=== PATIENT | female | born 1965 | race Caucasian/White ===

== ENCOUNTER 2020-11-11 14:12 | Emergency (ER) | payer BC, OTHER ==
--- OUTSIDE RECORDS SUMMARY | 2020-11-11 14:19 | XMS REPORT | Continuity of Care Document ---
:1965 [facility] t Address [address] [place] [address] Care Team Providers Name Role Phone Pcp MD Primary Care Physician Unavailable Problems This patient has no known problems. Allergies, Adverse Reactions, Alerts This patient has no known allergies or adverse reactions. Social History Social Habit Start Date Stop Date Quantity Comments Source Sex Assigned At [facility] Tobacco use and 2018-03-28 2018-03-28 Never used [facility] - exposure 00:00:00 00:00:00 [facility] Alcohol intake 2018-03-28 2018-03-28 Current [facility] es - 00:00:00 00:00:00 non-drinker of [facility] nter alcohol (finding) Smoking Status Start Date Stop Date Source Never smoker [facility] Medications Ordered Filled Start Stop Current Ordering Indication Dosage Frequency Signature Comments Components Source Medication Medication Date Date Medication? Clinician (SIG) Name Name selenium 50 Yes 50ug QD Take [address] [facility] mcg Tab 5-30 mcg [facility] - 10:16: mouth Medical 29 daily. [place] SUMAtriptan Yes 50mg Take [address] [facility] (IMITREX) 5-30 by mouth [facility] - 50 MG 10:16: once as Medical tablet 29 needed for Center Headaches. levothyroxi Yes 50ug Take [address] [facility] ne 5-30 mcg by [facility] - (SYNTHROID, 10:16: mouth Medic al LEVOTHROID) 28 Every Center 50 MCG morning on tablet an empty stomach. raloxifene Yes 60mg QD Take [address] (EVISTA) 60 5-30 by mouth Luke [facility] - mg tablet 10:16: daily. Medica l 28 [place] magnesium 2018-0 Yes 250mg QD Take [address] [facility] 30 mg 5-30 mg by [facility] - tablet 10:16: mouth Medical 28 daily. [place] calcium 2018-0 Yes 1{tbl} QD Take [address] [facility] carbonate 5-30 tablet by [facility] - (TUMS) 500 10:16: mouth Medica l mg chewable 28 daily. [facility] tablet calcium 2018-0 Yes 1{tbl} Take [address] [facility] carbonate-v 5-30 tablet by [facility] - itamin D3 10:16: mouth Medical (CALCIUM- 28 once. [facility] TAMIN D) 500 mg(1,250mg) -200 unit per tablet Procedures This patient has no known procedures. Plan of Care Planned Activity Planned Date Details Comments Source Future Scheduled 2020-06-[address] [facility] - Test 00:00:00 (#1) [code = [facility] INFLUENZA VACCINE (#1)] Future Scheduled [address] [facility] - Test 00:00:00 (procedure) [code = [facility] 32474807] Future Scheduled [address] [facility] - Test 00:00:00 malignant neoplasm Medical C enter of cervix (procedure) [code = 716921437] Future Scheduled [address] [facility] - Test 00:00:00 malignant neoplasm Medical C enter of breast (procedure) [code = 781073562] Future Scheduled [address] [facility] - Test 00:00:00 malignant neoplasm Medical C enter of colon (procedure) [code = 655309868] Results Test Description Test Time Test Comments Results Result [facility] e Comments MM, MAMMO, OUTSIDE 2018-03-29 MRN#: [id number] 08:54:00 [id number] - MM, MAMMO, OUTSIDE FILMSBILATERAL DIGITAL DIAGNOSTIC MAMMOGRAM OUTSIDE STUDY: 03/28/2018Comparison is made to exams dated: 06/12/2017 mammogram and 05/16/2017 mammogram. There are scattered fibroglandular elements in the right breast that could obscure a lesion on mammography. The patient has been referred for potential stereotactic biopsy of a group of calcifications in the central medial right breast. Upon review, there are developing round, coarse and dystrophic calcifications scattered in the right anterior central medial breast, consistent with fat necrosis from the patient's recent reduction mammoplasty.IMPRESSIO N: BENIGNThe findings, options for management and recommendations have been discussed with the patient and her sister. A follow-up mammogram in 6 months is recommended to demonstrate stability. Verna Saldana M.D. pth/:03/29/2018 08:54:06 Awning Hanger Supervisor: Liana DELUCA(Mary)(M), [facility] Mammogram BI-RADS: 2 Benign [id number]
--- OUTSIDE RECORDS SUMMARY | 2020-11-11 14:19 | XMS REPORT | Clinical Summary ---
:1965 Author Organization [facility] Address [address] [place] [address] Care Team Providers Name Role Phone Pcp, Primary Care Provider Unavailable Allergies No Known Allergies Medications Medication Sig Dispensed Refills Start Date End Date Status levothyroxine Take 50 mcg by 0 A ctive (SYNTHROID, LEVOTHROID) mouth Every 50 MCG tablet morning on an empty stomach. raloxifene (EVISTA) 60 Take 60 mg by 0 Active mg tablet mouth daily. magnesium 30 mg tablet Take 250 mg by 0 Active mouth daily. calcium carbonate Take 1 tablet by 0 Active (TUMS) 500 mg chewable mouth daily. tablet calcium Take 1 tablet by 0 Act abe carbonate-vitamin D3 mouth once. (CALCIUM-VITAMIN D) 500 mg(1,250mg) -200 unit per tablet selenium 50 mcg Tab Take 50 mcg by 0 Active mouth daily. SUMAtriptan (IMITREX) Take 50 mg by 0 Active 50 MG tablet mouth once as needed for Headaches. Active Problems Not on file Social History Tobacco Use Types Packs/Day Years Used Date Never Smoker Smokeless Tobacco: Never Used Alcohol Use Drinks/Week oz/Week Comments No Sex Assigned at Date Recorded Not on file Last Filed Vital Signs Not on file Plan of Treatment Health Maintenance Due Date Last Done Comments BREAST CANCER SCREENING 1965 COLON CANCER SCREENING COLONOSCOPY 1965 CERVICAL CANCER SCREENING PAP ONLY (Age 21-65) 1985 LIPID PANEL 2009 INFLUENZA VACCINE (#1) 2020 Results Not on fileafter 11/11/2019 Insurance Payer Benefit Plan / Subscriber ID Effective Dates Phone Addre ss Type Group [employer] - [employer] C[employer] AET[employer] PPO OPEN [facility] [id number] 2017-Present PPO NAP
[2020-11-11 18:14] LABS: Absolute Lymphocytes (CBC) 1.7 K/uL (0.7-4.9); Basophils % 1.1 % (0-1.3); Hematocrit 41.2 % (36.0-45.0); Lymphocytes % 30.6 % (15.3-44.8); RBC Red Blood Cell Count 4.99 M/uL (3.86-4.86)
--- NOTE | 2020-11-11 18:15 | RAD REPORT ---
EXAM DESCRIPTION: CT - Head Brain Wo Cont - 11/11/2020 6:03 pm CLINICAL HISTORY: headache, elevated BP COMPARISON: Head Brain Wo Cont dated 07/27/2016 TECHNIQUE: Axial 5 mm thick images of the head were obtained without IV contrast. All CT scans are performed using dose optimization technique as appropriate and may include automated exposure control or mA/KV adjustment according to patient size. FINDINGS: No intracranial hemorrhage, mass, edema or shift of mid-line structures. No acute infarcti on changes seen. No abnormal extra-axial fluid collections. Ventricles are normal. Physiologic calcif ications are present. Mastoid air cells and visualized portions of the paranasal sinuses are clear. No acute bony findings. IMPRESSION: Negative non-contrast CT head examination for acute or significant finding. No significant change from the 2016 study.
[2020-11-11 18:22] LABS: BUN Blood Urea Nitrogen 9 mg/dL (7-18); Bicarbonate 31 mmol/L (21-32); Glucose Level 99 mg/dL (74-106); Potassium 3.6 mmol/L (3.5-5.1); Sodium Level 142 mmol/L (136-145); Troponin (Emerg Dept Use Only) < 0.02 ng/mL (0.0-0.045)
[2020-11-11 18:51] LABS: SARS-COV-2 RT PCR NEGATIVE (NEGATIVE)
--- NOTE | 2020-11-11 19:00 | ER ---
Nurse's Notes [facility] Name: aSndra Sanchez Age: 55 yrs Sex: Female : 1965 Arrival Date: 11/11/2020 Time: 14:15 Bed 15 Private MD: Diagnosis: Hypertension Presentation: 11/11 14:45 Chief complaint: Patient states: Sharp, shooting eye pain x 4 since last week, went to [facility] Dr. Kaminski and eyes are healthy, he said its BP related. Went to lunch and started feeling lightheaded, not dizzy, sort of felt like I was going to pass out, symptoms have eased up but still a little light-headed. Coronavirus screen: Client denies travel out of the [place] in the last 14 days. At this time, the client does not indicate any symptoms associated with coronavirus-19. Ebola Screen: No symptoms or risks identified at this time. Mechanism of Injury: No Mechanism of Injury. The patient denies any loss of vision. Initial Sepsis Screen: Does the patient meet any 2 criteria? No. Patient's initial sepsis screen is negative. Does the patient have a suspected source of infection? No. Patient's initial sepsis screen is negative. Risk Assessment: Do you want to hurt yourself or someone else? Patient reports no desire to harm self or others. Onset of symptoms was November 11, 2020 at 14:00. Care prior to arrival: None. 14:45 Method Of Arrival: Ambulatory [facility] 14:45 Acuity: SANDY 3 7 Triage Assessment: 15:03 General: Appears in no apparent distress. uncomfortable, Behavior is cooperative, jl7 appropriate for age, anxious. Pain: Denies pain. EENT: Sclera/Cornea are reddened in right eye. Historical: - Allergies: 15:03 Codeine; jl7 - Home Meds: 15:03 Imitrex Sub-Q PRN for Migraine [Active]; levothyroxine oral [Active]; jl7 - PMHx: 15:03 Migraines; Hypothyroidism; jl7 - PSHx: 15:03 Hysterectomy; TMJ; jl7 - Immunization history:: Adult Immunizations not up to date. - Social history:: Smoking status: Patient denies any tobacco usage or history of. - Family history:: not pertinent. - Hospitalizations: : No recent hospitalization is reported. Screenin:30 Fall Risk None identified. zb 19:59 Abuse screen: Denies threats or abuse. Denies injuries from another. Nutritional zb screening: No deficits noted. Tuberculosis screening: No symptoms or risk factors identified. Assessment: 16:00 General: Appears in no apparent distress. comfortable, Behavior is calm, cooperative, zb appropriate for age. Pain: Complains of pain in right eye. Neuro: Level of Consciousness is awake, alert, confused, Oriented to person, place, time, situation. Cardiovascular: Reports Denies chest pain, nausea, syncope, Heart tones S1 S2 present Capillary refill < 3 seconds in bilateral fingers Patient's skin is warm and dry. Respiratory: Airway is patent Respiratory effort is even, unlabored, Respiratory pattern is regular, symmetrical. GI: Abdomen is round non-distended. : No signs and/or symptoms were reported regarding the genitourinary system. EENT: Eyes pain reports pain. no tearing or swelling noted. . Derm: No signs and/or symptoms reported regarding the dermatologic system. Musculoskeletal: No signs and/or symptoms reported regarding the musculoskeletal system. 17:00 Reassessment: Patient appears in no apparent distress at this time. Patient and/or zb family updated on plan of care and expected duration. Pain level reassessed. Patient is alert, oriented x 3, equal unlabored respirations, skin warm/dry/pink. 18:00 Reassessment: Patient appears in no apparent distress at this time. Patient and/or zb family updated on plan of care and expected duration. Pain level reassessed. Patient is alert, oriented x 3, equal unlabored respirations, skin warm/dry/pink. 19:00 Reassessment: Patient appears in no apparent distress at this time. Patient and/or zb family updated on plan of care and expected duration. Pain level reassessed. Patient is alert, oriented x 3, equal unlabored respirations, skin warm/dry/pink. Vital Signs: 14:45 BP 156 / 109; Pulse 77; Resp 17; Pulse Ox 100% ; Weight 65.77 kg; Height 5 ft. 7 in. jl7 (170.18 cm); Pain 0/10; 19:31 BP 157 / 91; Pulse 69; Resp 16; Pulse Ox 100% on R/A; zb 14:45 Body Mass Index 22.71 (65.77 kg, 170.18 cm) jl7 ED Course: 14:15 Patient arrived in ED. ag5 15:00 EKG completed in triage. Results shown to MD. jl7 15:02 Triage completed. jl7 15:03 Arm band placed on right wrist. jl7 17:00 Inserted saline lock: 20 gauge in right antecubital area, using aseptic technique. zb 17:10 Flaco Hernandez MD is Attending Physician. rn 18:03 CT Head Brain wo Cont In Process Unspecified. EDMS 18:40 Giuliana Gunderson, RAMAKRISHNA is Primary Nurse. zb 20:00 Patient has correct armband on for positive identification. Bed in low position. zb quality assurance monitor on. Pulse ox on. NIBP on. Door closed. Noise minimized. Warm blanket given. 20:00 IV discontinued, intact, bleeding controlled, No redness/swelling at site. Pressure zb dressing applied. 20:00 No provider procedures requiring assistance completed. zb Administered Medications: No medications were administered Outcome: 19:00 Discharge ordered by . rn 20:00 Discharged to home ambulatory. zb 20:00 Condition: stable 20:00 Discharge instructions given to patient, Instructed on discharge instructions, follow up and referral plans. Demonstrated understanding of instructions, follow-up care. 20:01 Patient left the ED. zb Signatures: Dispatcher [employer] EDTN Flaco Hernandez MD MD rn Leal, Jahala, RN RN jl7 Hebert Moss 5 Giuliana Gunderson RN RN zvidal Corrections: (The following items were deleted from the chart) 19:59 16:00 Cardiovascular: Reports Heart tones S1 S2 present Capillary refill < 3 seconds in zb bilateral fingers Patient's skin is warm and dry. zb
--- NOTE | 2020-11-11 19:00 | EDPHYS ---
Physician Documentation [facility] Name: Sandra Sanchez Age: 55 yrs Sex: Female : 1965 Arrival Date: 11/11/2020 Time: 14:15 Bed 15 Private MD: ED Physician Flaco Hernandez HPI: 11/11 17:35 This 55 yrs old Female presents to ER via Ambulatory with complaints of Eye rn Pain, Chest Tightness, Diarrhea. 17:35 Reports told to get evaluation by quality assurance test program manager, seen for subconjunctival hemorrhage rn and told eye looks fine, doesn't seem to be cause of problem. Told BP was elevated and may be the culprit. Reports elevated diastolic BP > 100 at home, happens intermittently, today noticed high BP, lightheaded, "woozy", and reports diarrhea, so came in for eval. Did experience brief episode of chest tightness, but quickly resolved. Currently asymptomatic. . Onset: The symptoms/episode began/occurred today. Severity of symptoms: At their worst the symptoms were moderate in the emergency department the symptoms have resolved. The patient has experienced similar episodes in the past. The patient has not recently seen a physician. Historical: - Allergies: 15:03 Codeine; jl7 - Home Meds: 15:03 Imitrex Sub-Q PRN for Migraine [Active]; levothyroxine oral [Active]; jl7 - PMHx: 15:03 Migraines; Hypothyroidism; jl7 - PSHx: 15:03 Hysterectomy; TMJ; jl7 - Immunization history:: Adult Immunizations not up to date. - Social history:: Smoking status: Patient denies any tobacco usage or history of. - Family history:: not pertinent. - Hospitalizations: : No recent hospitalization is reported. ROS: 17:35 Constitutional: Negative for fever, chills, and weight loss, Eyes: Negative for injury, distance learning administrator, ENT: Negative for injury, pain, and discharge, Neck: Negative for injury, pain, and swelling, Cardiovascular: Negative for palpitations, and edema, Respiratory: Negative for shortness of breath, cough, wheezing, and pleuritic chest pain, Abdomen/GI: Negative for abdominal pain, nausea, vomiting, and constipation, Back: Negative for injury and pain, : Negative for injury, bleeding, discharge, and swelling, MS/Extremity: Negative for injury and deformity, Skin: Negative for injury, rash, and discoloration, Neuro: Negative for weakness, numbness, tingling, and seizure. Exam: 17:35 Constitutional: This is a well developed, well nourished patient who is awake, alert, rn and in no acute distress. Head/Face: Normocephalic, atraumatic. Eyes: Pupils equal round and reactive to light, extra-ocular motions intact. + right eye with subconjunctival hemorrhage lateral/inferior Cardiovascular: Regular rate and rhythm. No pulse deficits. Respiratory: Speaking full sentences. No increased work of breathing, no retractions or nasal flaring. Abdomen/GI: soft, non-tender Skin: Warm, dry MS/ Extremity: Pulses equal, no cyanosis. Neurovascular intact. Full, normal range of motion. Equal circumference. Neuro: Awake and alert, GCS 15, oriented to person, place, time, and situation. Cranial nerves II-XII grossly intact. Motor strength 5/5 in all extremities. Sensory grossly intact. Cerebellar exam normal. Vital Signs: 14:45 BP 156 / 109; Pulse 77; Resp 17; Pulse Ox 100% ; Weight 65.77 kg; Height 5 ft. 7 in. jl7 (170.18 cm); Pain 0/10; 19:31 BP 157 / 91; Pulse 69; Resp 16; Pulse Ox 100% on R/A; zb 14:45 Body Mass Index 22.71 (65.77 kg, 170.18 cm) jl7 MDM: 17:10 Patient medically screened. rn 18:43 Differential Diagnosis malignant HTN, COVID, stress reaction. Data reviewed: vital rn signs, nurses notes, lab test result(s), EKG, radiologic studies, CT scan, and as a result, I will discharge patient. Counseling: I had a detailed discussion with the patient and/or guardian regarding: the historical points, exam findings, and any diagnostic results supporting the discharge/admit diagnosis, lab results, radiology results, the need for outpatient follow up, to return to the emergency department if symptoms worsen or persist or if there are any questions or concerns that arise at home. Response to treatment: the patient's symptoms have mildly improved after treatment, and as a result, I will discharge patient. Special discussion: I discussed with the patient/guardian in detail that at this point there is no indication for admission to the hospital. It is understood, however, that if the symptoms persist or worsen the patient needs to return immediately for re-evaluation. Based on the history and exam findings, there is no indication for further emergent testing or inpatient evaluation. I discussed with the patient/guardian the need to see the logistics coordinator for further evaluation of the symptoms. I discussed with the patient/guardian the need to see the primary care provider for further evaluation of the symptoms. ED course: Neg trop, neg CT head, normal neuro exam, asymptomatic since arrival, ECG without ischemia, will dc home with instructions to take BP diary and f/u with pcp/cardiology for BP management. Return precautions given. Already evaluated by ophtho and told eye ok. BP improved to 169/90 without meds here. . 11/11 17:32 Order name: CBC with Diff rn 11/11 17:32 Order name: Basic Metabolic Panel; Complete Time: 18:25 rn 11/11 17:32 Order name: Troponin (emerg Dept Use Only); Complete Time: 18:25 rn 11/11 17:33 Order name: CBC with Automated Diff; Complete Time: 18:19 EDMS 11/11 17:32 Order name: CT Head Brain wo Cont; Complete Time: 18:19 rn 11/11 17:32 Order name: IV Start; Complete Time: 17:58 rn 11/11 17:32 Order name: EKG; Complete Time: 17:33 rn 11/11 17:32 Order name: EKG - Nurse/Tech; Complete Time: 18:40 rn 11/11 18:52 Order name: COVID-19/FLU A+B; Complete Time: 18:59 EDMS Administered Medications: No medications were administered Disposition: 11/11/20 19:00 Discharged to Home. Impression: Hypertension. - Condition is Stable. - Discharge Instructions: Hypertension, Managing Your Hypertension. - Medication Reconciliation Form, Thank You Letter, Antibiotic Education, Prescription Opioid Use form. - Follow up: Private Physician; When: As needed; Reason: Recheck today's complaints, Re-evaluation by your physician. - Problem is new. - Symptoms have improved. Signatures: Dispatcher [employer] EDMS Flaco Hernandez MD MD rn Leal, Jahala, RN RN jl7 Giuliana Gunderson RN RN zb Corrections: (The following items were deleted from the chart) 18:06 17:33 CORONAVIRUS+MR.LAB.BRZ ordered. EDMS EDMS 18:41 17:33 Influenza Screen (A \\T\\ B)+BA.LAB.BRZ ordered. EDMS EDMS 20:01 19:00 11/11/2020 19:00 Discharged to Home. Impression: Hypertension. Condition is zb Stable. Discharge Instructions: Hypertension, Managing Your Hypertension. Forms are Medication Reconciliation Form, Thank You Letter, Antibiotic Education, Prescription Opioid Use. Follow up: Private Physician; When: As needed; Reason: Recheck today's complaints, Re-evaluation by your physician. Problem is new. Symptoms have improved. rn
[2020-11-11 20:05] VITALS: O2SAT 100
[2020-11-11 20:07] VITALS: BP 157/91
--- NOTE | 2020-11-12 11:22 | EKG ---
Test Date: 2020-11-11 Test Time: 18:39:49 Water Use Inspector: JAIME MEASUREMENT RESULTS: Intervals: Rate: 62 GA: 168 QRSD: 84 QT: 414 QTc: 420 [place]: P: 67 GA: 168 QRS: 99 T: 82 INTERPRETIVE STATEMENTS: Normal sinus rhythm Rightward axis Nonspecific ST abnormality Abnormal ECG Compared to ECG 11/11/2020 14:57:46 ST (T wave) deviation now present Electronically Signed On 11-12-20 11:20:49 FOUNDATION DIRECTOR by Robin Salas
--- NOTE | 2020-11-12 11:23 | EKG ---
Test Date: 2020-11-11 Test Time: 14:57:46 Party Plan Sales Agent: JERAMY MEASUREMENT RESULTS: Intervals: Rate: 68 [place]: 168 QRSD: 86 QT: 408 QTc: 433 [place]: P: 73 [place]: 168 QRS: 94 T: 55 INTERPRETIVE STATEMENTS: Normal sinus rhythm Rightward axis Borderline ECG Compared to ECG 07/27/2016 11:46:53 Right-axis deviation now present Sinus bradycardia no longer present ST (T wave) deviation no longer present Electronically Signed On 11-12-20 11:20:51 RESOURCE ROOM SPECIAL EDUCATION TEACHER by Robin Salas
== END 2020-11-11 20:01 | disposition home or self-care (01) ==
LOC: ER 14:12
DX: I10 Essential (primary) hypertension (principal); E03.9 Hypothyroidism, unspecified; G43.909 Migraine, unspecified, not intractable, without status migrainosus; Z20.822 Contact with and (suspected) exposure to COVID-19; Z88.6 Allergy status to analgesic agent
CPT/HCPCS: 93005 ×2; 85025; 80048; 36415; 84484; 0240U; 70450; 99284